=== PATIENT | female | born 1975 | race Caucasian/White ===

== ENCOUNTER 2019-04-26 11:23 | Day surgery (SDC) | payer OTHER ==
[2019-04-26] MEDS ORDERED: LIDOCAINE-MPF 2% 5 ML VIAL IM ONE (11:24)
[2019-04-26] MEDS ORDERED: DEXAMETHASONE 4 MG/ML VIAL IVP ONE (11:24)
[2019-04-26] MEDS ORDERED: PROPOFOL 200 MG/20 ML VIAL IVP ONE (11:24)
[2019-04-26] MEDS ORDERED: MIDAZOLAM 2 MG/2 ML VIAL IVP ONE (11:24)
[2019-04-26] MEDS ORDERED: fentaNYL 100 MCG/2 ML VIAL IVP ONE (11:24)
[2019-04-26] MEDS ORDERED: LACTATED RINGERS 1,000 ML IV ONE (11:35)
--- NOTE | 2019-04-26 12:07 | ANESTHESIA ---
Pre-Anesthesia VS, & Labs - Diagnosis wallace syndrome - Procedure myosure, hysteroscopy, polypectomy Vital Signs: Temp Pulse Resp BP Pulse Ox 36.7 C 93 16 138/102 H 99 04/26/19 11:39 04/26/19 11:39 04/26/19 11:39 04/26/19 11:39 04/26/19 11:39 Height 5 ft 7 in Weight (kg) 82.6 kg - Is Patient ?: No Home Medications and Allergies Pantoprazole [Protonix] 40 mg PO 04/11/19 Venlafaxine ER [Effexor ER] 75 mg PO DAILY 04/11/19 Allergies/Adverse Reactions: Allergies Allergy/AdvReac Type Severity Reaction Status Date / Time levofloxacin [From Levaquin] Allergy Rash Verified 04/25/19 14:32 Anes History & Medical History - Anesthetic History Anesthesia Complications: reports: No previous complications (no previous anesthetic history) Family history of Anesthesia Complications: Denies Family history of Malignant Hyperthermia: Denies - Medical History Cardiovascular: reports: None Pulmonary: reports: None Gastrointestinal: reports: GERD, Crohn's disease Urinary: reports: None Neuro: reports: None Musculoskeletal: reports: None Endocrine/Autoimmune: reports: None Blood Disorders: reports: None Skin: reports: None Smoking Status: Never smoker Psychosocial: reports: No issues indicated, Depression, Anxiety, Alcohol (rarely) - Surgical History General: Colonoscopy Exam General: Alert, Oriented x3, Cooperative, No acute distress Dental: WNL Mouth Openin Fingerbreadth Neck Mobility: Normal Mallampati classification: I Thyromental Distance: 4-6 cm Respiratory: Lungs clear, Normal breath sounds, No respiratory distress, No accessory muscle use Cardiovascular: Regular rate, Normal S1, Normal S2, No murmurs Abdomen: Normal bowel sounds, Soft, No tenderness, No hepatospenomegaly, No masses Extremities: No clubbing, No cyanosis, No edema, Normal pulses, No tenderness/swelling Neurological: Normal gait, Normal speech, Strength at 5/5 X4 ext, Normal tone, Sensation intact, Cranial nerves 3-12 NL, Reflexes 2+ Mental/Cognitive Status: Alert/Oriented X3, Normal for patient Cognitive Status: Within normal limits Plan Anesthesia Type: General Consent for Procedure(s) Verified and Reviewed: Yes Code Status: Attempt Resuscitation ASA classification: 2-Mild systemic disease Is this case an emergency?: No
[2019-04-26] MEDS ORDERED: SILVER NITRATE APPLICATOR TOP ONE (12:08)
[2019-04-26] MEDS ORDERED: VASOPRESSIN 20 UNIT/ML VIAL ONE (12:10)
[2019-04-26] MEDS ORDERED: LIDOCAINE 1%-EPI 1:100000 20 ML MDV ONE (12:10)
[2019-04-26] MEDS ORDERED: LIDOCAINE-MPF 1% 30 ML VIAL ONE (12:10)
[2019-04-26 12:14] LABS: HCG UR QUAL NEGATIVE
[2019-04-26] MEDS ORDERED: LIDOCAINE 1% 50 ML MDV SUBQ ONE ×2 (12:53)
[2019-04-26] MEDS ORDERED: HYDROmorphone 0.5 MG/0.5 ML SYRINGE IVP PRN (13:13)
[2019-04-26] MEDS ORDERED: ONDANSETRON 4 MG/2 ML VIAL IVP PRN (13:13)
[2019-04-26] MEDS ORDERED: oxyCODONE 5 MG TABLET PO PRN (13:13)
--- NOTE | 2019-04-26 13:16 | OPERATIVE REPORT ---
Operative Report - General Procedure Date: 04/26/19 Planned Procedure: hysteroscopy, polypectomy, dilation and curettage Pre-Op Diagnosis: uterine polyp Procedure Performed: operative hysteroscopy with polypectomy, dilation and curettage Post Op Diagnosis: uterine polyps - Procedure Note Primary Surgeon: Mahi Vera Anesthesia Provider: Pernell Montes Anesthesia Technique: General LMA Pathology: endometrial polyp IV Fluids (mL): 300 Estimated Blood Loss (mL): 5 Urine Output (mL): 0 Indications: uterine polyp, AUB Findings: small globular anteverted uterus, mobile, wide arch, no mass. Parous os, no dilation required. Lush endometrium with multiple small polyps and larger polyp along posterior wall, resected with myosure. Additional tissue collected with curettage at conclusion. Complications: none - Other Other Information/Narrative: After informed consent was assured, the patient was taken to the operating room where anesthesia was induced. Pt was placed in high dorsal lithotomy in yellow fin stirrups. An exam under anesthesia was performed which revealed a small anteverted uterus, globular and mobile with no masses. The patient was prepped and draped in the usual sterile fashion. Hysteroscopy equipment was set up and white balanced. A surgical timeout was performed. A speculum was inserted into the vagina, and a tenaculum was placed on the anterior lip of the cervix. Hanks dilators were used to dilate the cervix but the parous os was noted to be open and no dilation needed to pass a 14 mongolian Hanks dilator. The hysteroscope light was turned on and fluids were run through. The hysteroscope was passed through the cervix into the endometrial cavity, which was gently distended with fluid. Initially difficulty was noted distending the cavity, however after increasing the pressure to 80 and using a ring forcep to clamp the dilated cervix around the hysteroscope and prevent fluid loss, better visualization was achieved. Bilateral ostia were unable to be visualized due to lush endometrium with multiple small irregular polyps noted on all uterine surfaces; a larger polyp was noted along the posterior uterine wall. The operative morcellator was passed through the operative sheath into the cavity and used to morcellate the polyps under suction. The cavity appeared smooth and regular at the conclusion. The hysteroscope was withdrawn. A curette was then inserted to the fundus and withdrawn along all uterine surfaces with return of further polypoid tissue; good uterine cri appreciated. The tenaculum was removed from the cervix and silver nitrate was applied to the tenaculum site on the right with good hemostasis observed. All instruments were removed from the vagina, and a repeat bimanual exam revealed a small firm uterus and no instruments in the vaginal vault. The pt was awoken and taken to PACU in stable condition.
[2019-04-26 13:46] VITALS: BP 122/81
== END 2019-04-26 11:24 | disposition home or self-care (01) ==
LOC: SDS 11:23
PROVIDERS: ATTEND Obstetrics & Gynecology
PROC: 0UB98ZZ Excision of Uterus, Via Natural or Artificial Opening Endoscopic (ICD-10-PCS; principal; 2019-04-26 12:30)
DX: N84.0 Polyp of corpus uteri (principal); K21.9 Gastro-esophageal reflux disease without esophagitis; K50.90 Crohn's disease, unspecified, without complications; F32.9 Major depressive disorder, single episode, unspecified
CPT/HCPCS: 81025